=== PATIENT | male | born 1965 | race Caucasian/White ===

== ENCOUNTER 2017-09-23 | Emergency (ER) | payer SELFPAY ==
--- NOTE | 2017-09-23 16:58 | EDPHYS ---
Physician Documentation [facility] Name: Juvenal Garcia Age: 51 yrs Sex: Male : 1965 Arrival Date: 09/23/2017 Time: 15:59 Bed 6 Private MD: ED Physician Jh Hand HPI: 09/23 16:49 This 51 yrs old Male presents to ER via Ambulatory with complaints of Nose cp Problem. 16:49 The patient presents with wound on tip of nose. Onset: The symptoms/episode cp began/occurred gradually, and became worse this morning. Associated signs and symptoms: Pertinent negatives: cough, fever. Severity of symptoms: in the emergency department the symptoms are unchanged despite home interventions. Historical: - Allergies: 16:22 Codeine; aj - Home Meds: 16:22 tramadol Oral [Active]; aj - PMHx: 16:22 Gall stones; aj - PSHx: 16:22 Appendectomy; Tonsillectomy; aj - Immunization history:: Adult Immunizations up to date. - Social history:: Smoking status: Patient uses tobacco products, smokes one pack cigarettes per day. ROS: 16:51 Eyes: Negative for injury, pain, redness, and discharge. cp 16:51 Constitutional: Negative for body aches, chills, fever, poor PO intake. 16:51 ENT: Negative for drainage from ear(s), ear pain, sore throat, difficulty swallowing, difficulty handling secretions. 16:51 Respiratory: Negative for cough, shortness of breath, wheezing. 16:52 Skin: Positive for wound on tip of nose. cp 16:52 Neuro: Negative for altered mental status, dizziness, headache. 16:52 All other systems are negative. Exam: 16:53 Constitutional: The patient appears in no acute distress, alert, awake, non-toxic, well cp developed, well nourished. 16:53 Head/face: Exam is negative for obvious evidence of injury or deformity, Noted is erythema, that is mild, of the apex of the nose, swelling, that is mild, of the apex of the nose, tenderness, that is mild, of the apex of the nose. 16:53 Eyes: Periorbital structures: appear normal, Pupils: equal, round, and reactive to light and accomodation, Extraocular movements: intact throughout, Conjunctiva: normal, no exudate, no injection, Lids and lashes: appear normal, bilaterally. 16:53 ENT: External ear(s): are unremarkable, Ear canal(s): are normal, clear, TM's: bulging, is not appreciated, bilaterally, dullness, bilaterally, erythema, is not appreciated, bilaterally, Nose: Nasal septum: is midline, Nasal mucosa: normal, nasal drainage, is not appreciated, Mouth: Lips: moist, Posterior pharynx: is normal, airway is patent. 16:53 Neck: ROM/movement: is normal, is supple, without pain, no range of motions limitations, no nuchal rigidity. 16:53 Chest/axilla: Inspection: normal. 16:53 Cardiovascular: Rate: normal. 16:53 Respiratory: the patient does not display signs of respiratory distress, Respirations: normal. 16:53 Skin: cellulitis, that is mild, on the apex of the nose. Vital Signs: 16:22 BP 155 / 104; Pulse 81; Resp 16; Temp 98.0; Pulse Ox 98% on R/A; Weight 74.84 kg; aj Height 5 ft. 9 in. (175.26 cm); Pain 4/10; 17:15 BP 141 / 82; Pulse 86; Resp 14; Temp 98.8; Pulse Ox 99% on R/A; Pain 3/10; ch 16:22 Body Mass Index 24.37 (74.84 kg, 175.26 cm) aj MDM: 16:44 Patient medically screened. cp 16:56 Data reviewed: vital signs, nurses notes. cp Administered Medications: No medications were administered Disposition: 17:20 Chart complete. cp Disposition: 09/23/17 16:57 Discharged to Home. Impression: Cellulitis of face - Nose. - Condition is Stable. - Discharge Instructions: Cellulitis. - Prescriptions for Bactroban 2 % Topical Cream - Apply to affected area 1 application by TOPICAL route every 12 hours apply to external nose as directed; 15 gram. Dicloxacillin 500 mg Oral Capsule - take 1 capsule by ORAL route every 6 hours for 10 days; 40 capsule. - Medication Reconciliation Form, Thank You Letter, Antibiotic Education, Prescription Opioid Use form. - Follow up: Private Physician; When: 2 - 3 days; Reason: Wound Recheck. - Problem is new. - Symptoms are unchanged. Signatures: Ashanti Min, RN RN Leilani Melendez RN RN Saul Camarillo, NICHOLAS PA cp
--- NOTE | 2017-09-23 16:58 | ER ---
Nurse's Notes [facility] Name: Juvenal Garcia Age: 51 yrs Sex: Male : 1965 Arrival Date: 09/23/2017 Time: 15:59 Bed 6 Private MD: Diagnosis: Cellulitis of face-Nose Presentation: 09/23 16:20 Presenting complaint: Patient states: Skin lesion to tip of nose that began this AM. aj Transition of care: patient was not received from another setting of care. Onset of symptoms was September 23, 2017. Care prior to arrival: None. 16:20 Method Of Arrival: Ambulatory 16:20 Acuity: LINDA 4 aj Triage Assessment: 16:22 General: Appears in no apparent distress. comfortable, Behavior is calm, cooperative, aj appropriate for age. Pain: Complains of pain in apex of the nose Pain currently is 4 out of 10 on a pain scale. Neuro: Level of Consciousness is awake, alert, obeys commands, Oriented to person, place, time, situation. Respiratory: Airway is patent Respiratory effort is even, unlabored, Respiratory pattern is regular, symmetrical. Derm: Skin is intact, is healthy with good turgor, Skin is pink, warm \T\ dry. normal, Rash noted that is vesicular, on apex of the nose. Historical: - Allergies: 16:22 Codeine; aj - Home Meds: 16:22 tramadol Oral [Active]; aj - PMHx: 16:22 Gall stones; aj - PSHx: 16:22 Appendectomy; Tonsillectomy; aj - Immunization history:: Adult Immunizations up to date. - Social history:: Smoking status: Patient uses tobacco products, smokes one pack cigarettes per day. Screenin:46 Abuse screen: Denies threats or abuse. Denies injuries from another. Nutritional ch screening: No deficits noted. Tuberculosis screening: No symptoms or risk factors identified. Fall Risk None identified. Assessment: 16:46 General: Appears in no apparent distress. comfortable, Behavior is calm, cooperative, appropriate for age. Pain: Complains of pain in forehead, nose and mouth Pain currently is 3 out of 10 on a pain scale. Pain began suddenly. Neuro: No deficits noted. Respiratory: Airway is patent Respiratory effort is even, unlabored, Breath sounds are clear bilaterally. GI: No signs and/or symptoms were reported involving the gastrointestinal system. Derm: Skin is pink, warm \T\ dry. Wound noted apex of the nose Wound is ABRASION TO TIP OF NOSE. PT STATES IT STARTED OFF SMALL AND RED ON FRIDAY, AND TODAY HAS GOTTEN MUCH WORSE. Musculoskeletal: No signs and/or symptoms reported regarding the musculoskeletal system. 17:15 Reassessment: Patient appears in no apparent distress at this time. Patient and/or ch family updated on plan of care and expected duration. Pain level reassessed. Patient is alert, oriented x 3, equal unlabored respirations, skin warm/dry/pink. Patient states feeling better. Vital Signs: 16:22 BP 155 / 104; Pulse 81; Resp 16; Temp 98.0; Pulse Ox 98% on R/A; Weight 74.84 kg; aj Height 5 ft. 9 in. (175.26 cm); Pain 4/10; 17:15 BP 141 / 82; Pulse 86; Resp 14; Temp 98.8; Pulse Ox 99% on R/A; Pain 3/10; ch 16:22 Body Mass Index 24.37 (74.84 kg, 175.26 cm) ED Course: 15:59 Patient arrived in ED. rg4 16:21 Triage completed. aj 16:22 Arm band placed on left wrist. Patient placed in waiting room, Patient notified of wait aj time. 16:44 [facility] 16:44 Jh Hand MD is Attending Physician. 16:46 Ashanti Min, RN is Primary Nurse. 16:46 No apparent distress. Resting quietly. 16:46 Patient has correct armband on for positive identification. Bed in low position. Call light in reach. Side rails up X 1. Adult w/ patient. 16:46 No provider procedures requiring assistance completed. Patient did not have IV access during this emergency room visit. Administered Medications: No medications were administered Outcome: 16:57 Discharge ordered by . cp 17:14 Discharged to home ambulatory. 17:14 Condition: stable 17:14 Discharge instructions given to patient, Instructed on discharge instructions, follow up and referral plans. Demonstrated understanding of instructions, follow-up care, medications, Prescriptions given X 2. 17:15 Patient left the ED. Signatures: Ashanti Min RN RN Leilani Melendez RN RN aj Page, Corey, PA PA cp Ho, Breanna rg4
== END 2017-09-23 17:15 | disposition home or self-care (01) ==
CPT/HCPCS: 99282